=== PATIENT | male | born 1985 | race Caucasian/White ===

== ENCOUNTER 2023-10-11 11:08 | Emergency (ER) | payer OTHER, SELFPAY ==
[2023-10-11 11:19] VITALS: BP 114/73; PULSE 73; RESP 18; TEMP 37.4; O2SAT 99; BMI 32.8
--- NOTE | 2023-10-11 12:10 | CRLHL7_ITS ---
For Patients: As a result of the Century Cures Act, medical imaging exams and procedure reports are released immediately into your electronic medical record. You may view this report before your referring provider. If you have questions, please contact your health care provider. INDICATION: Cough and fever. Recent pneumonia. Rule out pulmonary embolism. TECHNIQUE: Volumetric helical scanning of the thorax was performed during infusion of 95 cc of Isovue 370 contrast material IV, timing optimized for pulmonary arterial opacification. Coronal and sagittal reconstructions were obtained. COMPARISON: Chest x-ray of 07/29/2023 FINDINGS: The images are of acceptable quality and demonstrate uniform vascular enhancement within the pulmonary arteries. No pulmonary arterial filling defect is identified. The heart size is normal. Right upper lobe and right middle lobe airspace infiltrates consistent with pneumonia are demonstrated. The lungs are otherwise essentially clear. Some bronchial wall thickening is noted in the regions of the pneumonia. No other airway abnormalities noted. No pleural effusion is demonstrated. There is no mediastinal or hilar adenopathy. Images of the upper abdomen are unremarkable. IMPRESSION: 1. Negative for pulmonary embolism. 2. Airspace pneumonia is in the right upper and middle lobes. Please note that all CT scans at this facility use dose modulation, iterative reconstruction, and/or weight-based dosing when appropriate to reduce radiation dose to as low as reasonably achievable. Dictated by Kai Nicholas MD @ 10/11/2023 1:25:39 PM (Electronically Signed)
--- NOTE | 2023-10-11 12:13 | ED_ITS ---
HPI - General Adult General Date Seen: 10/11/23 Chief complaint: Cough Stated complaint: agressive cough, fever Time Seen by Provider: 10/11/23 11:26 Source: patient, RN notes reviewed and old records reviewed Mode of arrival: ambulatory Limitations: no limitations History of Present Illness HPI narrative: Patient is a 38-year-old generally healthy male who reports cough for the past couple of days, fevers up to 102. He tells me had a pneumonia diagnosed a couple of months ago in urgent care, was treated with antibiotics and feels that he improved. His son has been sick for the past couple of weeks. He does mention night sweats as well. Weight has been stable. No underlying asthma, nonsmoker. Related Data Home Medications Medication Instructions Recorded Confirmed amoxicillin 875 mg-potassium 1 tab PO BID 07/29/23 07/29/23 clavulanate 125 mg tablet prednisone 20 mg tablet 20 mg PO BID 07/29/23 07/29/23 Previous Rx's Medication Instructions Recorded albuterol sulfate 2.5 mg/3 mL 2.5 mg (3 mL) inhalation Q4-6H PRN 07/11/23 (0.083 %) solution for nebulization bronchospasm #90 mL albuterol sulfate 90 mcg/actuation 2 puff inhalation Q4-6H PRN 07/11/23 aerosol inhaler (Ventolin HFA) shortness of breath or wheezing #8.5 grams Allergies Allergy/AdvReac Type Severity Reaction Status Date / Time No Known Drug Allergies Allergy Verified 07/29/23 12:06 Review of Systems Status of ROS: Reports: 6 or more systems reviewed and unremarkable except as noted in History and below [facility] Medical History Pneumonia ?J18.9 - Pneumonia, unspecified organism (ICD-10) Recurrent cough ?R05.8 - Other specified cough (ICD-10) Sore throat ?J02.9 - Acute pharyngitis, unspecified (ICD-10) Community acquired pneumonia ?J18.9 - Pneumonia, unspecified organism (ICD-10) Bronchitis ?J40 - Bronchitis, not specified as acute or chronic (ICD-10) Wheezing ?R06.2 - Wheezing (ICD-10) Strep pharyngitis ?J02.0 - Streptococcal pharyngitis (ICD-10) Social History Smoking Status: Never smoker Exam Narrative: Exam Narrative: Vital signs as noted above. In general, an alert, well-appearing patient. Head: Normocephalic, atraumatic. Eyes: Pupils are equal reactive. Extraocular movements are full. Conjunctivae are normal. ENT: Mucous membranes are moist. Throat is normal. Neck: Supple no stridor. Heart: Regular rate and rhythm. No murmur or rub. Lungs: He has a few scattered rhonchi primarily on the left, no wheezes, no increased work of breathing. Cough does sound somewhat bronchospastic. Abdomen: Soft and nontender. No organomegaly. Extremities: Well perfused. No edema. No calf tenderness. Pulses intact. Neurologic: Patient is alert and oriented to person and place. Speech is fluent. Face is symmetric. Moves all extremities equally. Affect: Normal. Skin: Warm and dry. Well perfused. Const: Vital Signs, click to edit/add: Vital Signs - 24 hr 10/11/23 11:19 Temperature 99.3 F Pulse Rate [Pulse Oximeter] 73 Respiratory Rate 18 Blood Pressure [Le ft Upper Arm] 114/73 Pulse Oximetry 99 Oxygen Delivery Me thod Room Air Documenting provider has reviewed patient's vital signs: yes Course Course ED Course: I reviewed his previous records including looking at his x-ray from a couple of months ago. He had a focal area of consolidation and right upper lobe somewhat rounded in appearance. Radiology recommended interval follow-up to ensure resolution. I think overall a CT scan is a better test today to make sure that that area looks normal and look for any new findings. COVID, flu and RSV ordered as well. Patient did not do a COVID test. COVID was negative as was flu and RSV. CT scan by my review showed what looked to be consolidation in the right middle and lower lobes. Read by radiology as follows:FINDINGS: The images are of acceptable quality and demonstrate uniform vascular enhancement within the pulmonary arteries. No pulmonary arterial filling defect is identified. The heart size is normal. Right upper lobe and right middle lobe airspace infiltrates consistent with pneumonia are demonstrated. The lungs are otherwise essentially clear. Some bronchial wall thickening is noted in the regions of the pneumonia. No other airway abnormalities noted. No pleural effusion is demonstrated. There is no mediastinal or hilar adenopathy. Images of the upper abdomen are unremarkable. IMPRESSION: 1. Negative for pulmonary embolism. 2. Airspace pneumonia is in the right upper and middle lobes. I reviewed this with the radiologist given that he appeared to have airspace c onsolidation on July 29 in the same area, radiologist did not feel that there was any evidence of an underlying mass or other structural abnormality. No significant adenopathy. Did not feel that he needed any additional workup. I did check labs and these are unremarkable with a normal white blood cell count, predominance of monocytes unremarkable metabolic panel and LFTs. CRP is elevated at 7. I have discussed all this with the patient. I did recommend that he have a repeat x-ray in 6 weeks with his regular clinic just to make sure that that really does clear up. Unclear whether this is a new pneumonia or persistence of infiltrate given no interval imaging. Doxycycline prescribed. For worsening respiratory symptoms, shaking chills vomiting etcetera return to the emergency department. Otherwise primary clinic follow-up if not improved over the next several days. Vital Signs Vital signs: Initial Vital Signs Temperature 99.3 F 10/11/23 11:19 Temperature Source Temporal Artery Scan 10/11/23 11:19 Pulse Rate 73 10/11/23 11:19 Pulse Rhythm Regular 10/11/23 11:19 Respiratory Rate 18 10/11/23 11:19 Blood Pressure 114/73 10/11/23 11:19 Blood Pressure Mean 86 10/11/23 11:19 Pulse Oximetry 99 10/11/23 11:19 Oxygen Delivery Method Room Air 10/11/23 11:19 Vital Signs Temperature 99.3 F 10/11/23 11:19 Pulse Rate 73 10/11/23 11:19 Respiratory Rate 18 10/11/23 11:19 Blood Pressure 114/73 10/11/23 11:19 Pulse Oximetry 99 10/11/23 11:19 Oxygen Delivery Method Room Air 10/11/23 11:19 Temperature 99.3 F 10/11/23 11:19 Pulse Rate 73 10/11/23 11:19 Respiratory Rate 18 10/11/23 11:19 Blood Pressure 114/73 10/11/23 11:19 Pulse Oximetry 99 10/11/23 11:19 Oxygen Delivery Method Room Air 10/11/23 11:19 Medical Decision Making Lab Data Labs: Lab Results 10/11/23 10/11/23 Range/Units 12:12 12:40 WBC 6.37 (4.50-11.00) K/uL RBC 5.07 (4.30-5.90) m/uL Hgb 15.1 (13.5-17.5) gm/dL Hct 45.3 (37.0-53.0) % MCV 89 (80-100) fL MCH 30 (26-34) pg MCHC 33 (32-36) gm/dL RDW Coeff of Saima 12.0 (11.5-15.5) % Plt Count 158 (140-440) K/uL Neut % (Auto) 61.7 (42.0-72.0) % Lymph % (Auto) 19.0 L (20-44) % Garrett % (Auto) 17.4 H (0.0-11.0) % Eos % (Auto) 1.4 (0.0-7.0) % Baso % (Auto) 0.3 (0.0-3.0) % Neut # (Auto) 3.93 (1.7-7.0) K/uL Lymph # (Auto) 1.20 (0.90-2.90) K/uL Garrett # (Auto) 1.10 H (0.00-0.90) K/UL Eos # (Auto) 0.09 (0.00-0.50) K/uL Baso # (Auto) 0.02 (0.00-0.30) K/uL Abs Immat Gran (auto) 0.01 (0.00-0.30) K/uL Imm/Tot Granulo (auto) 0.2 % Sodium 138 (135-149) mmol/L Potassium 4.1 (3.6-5.1) mmol/L Chloride 101 (96-114) mmol/L Carbon Dioxide 29 (20-32) mmol/L Anion Gap 8 (7-15) mEq/L BUN 10 (5-24) mg/dL Creatinine 0.7 (0.5-1.5) mg/dL Estimated Creat Clear 153.89 Estimated GFR 122 ml/min Glucose 100 (60-115) mg/dL Calcium 9.2 (8.4-10.6) mg/dL Total Bilirubin 1.4 (0.1-1.5) mg/dL Direct Bilirubin 0.0 (0.0-0.5) mg/dL AST 30 (12-35) U/L ALT 18 (4-50) U/L Alkaline Phosphatase 49 (40-150) U/L C-Reactive Protein 7.1 H (0.5-1.0) mg/dL Total Protein 8.3 (6.0-8.3) g/dL Albumin 4.6 (3.3-5.0) g/dL SARS-CoV-2 (PCR) Negative SARS-CoV-2 (Negative) Influenza Type A (PCR) Negative PCR FLU A (Negative) Influenza Type B (PCR) Negative PCR FLU B (Negative) RSV (PCR) Negative PCR RSV (Negative) Discharge Plan Discharge Clinical Impression: Pneumonia Patient Disposition: Home, Self-Care Condition: Stable Instructions: Community Acquired Pneumonia (DC) Additional Instructions: Antibiotic as prescribed. I would recommend that you follow-up with your primary clinic in about 6 weeks and have a repeat x-ray done to make sure that this area clears up. If you are worsening, have vomiting, chills, difficulty breathing etcetera return to the emergency department at any time. If symptoms are not improved over the next 3-4 days, see your primary clinic. Activity Level: No Restrictions Discharge Diet: Regular Prescriptions: No Action amoxicillin-pot clavulanate 875-125 mg tablet 1 tab PO BID prednisone 20 mg tablet 20 mg PO BID albuterol sulfate 2.5 mg /3 mL (0.083 %) solution for nebulization 2.5 mg inhalation Q4-6H PRN (Reason: bronchospasm) Qty: 90 0RF albuterol sulfate [Ventolin HFA] 90 mcg/actuation HFA aerosol inhaler 2 puff inhalation Q4-6H PRN (Reason: shortness of breath or wheezing) Qty: 8 .5 0RF Follow Up/Referrals: Hilton Fagan MD [Primary Care Provider] - Stand Alone Forms: [employer] Info Instructions
[2023-10-11 12:49] LABS: Basophils Absolute Auto 0.02 K/uL (0.00-0.30); Basophils Percent Auto 0.3 % (0.0-3.0); Eosinophils Absolute Auto 0.09 K/uL (0.00-0.50); Eosinophils Percent Auto 1.4 % (0.0-7.0); Hematocrit 45.3 % (37.0-53.0); Hemoglobin* 15.1 gm/dL (13.5-17.5); Immature Granulocytes Abs Auto 0.01 K/uL (0.00-0.30); Immature Granulocytes Pct Auto 0.2 %; Mean Corpuscular HGB Conc 33 gm/dL (32-36); Mean Corpuscular Hemoglobin 30 pg (26-34); Mean Corpuscular Volume 89 fL (80-100); Monocytes Percent Auto 17.4 % (0.0-11.0); Neutrophils Absolute Auto 3.93 K/uL (1.7-7.0); Neutrophils Percent Auto 61.7 % (42.0-72.0); Platelet Count* 158 K/uL (140-440); Red Blood Count 5.07 m/uL (4.30-5.90); White Blood Count* 6.37 K/uL (4.50-11.00)
[2023-10-11 12:56] LABS: Slide Review Reflex No
[2023-10-11 12:56] LABS: PCR FLU A Negative PCR FLU A (Negative); PCR FLU B Negative PCR FLU B (Negative); PCR RSV Negative PCR RSV (Negative)
[2023-10-11 12:57] LABS: SARS PCR* Negative SARS-CoV-2 (Negative)
[2023-10-11 13:01] LABS: Albumin* 4.6 g/dL (3.3-5.0); Chloride* 101 mmol/L (96-114)
[2023-10-11 13:02] LABS: Potassium* 4.1 mmol/L (3.6-5.1); Sodium* 138 mmol/L (135-149)
[2023-10-11 13:04] LABS: Creatinine* 0.7 mg/dL (0.5-1.5); Est. Creatinine Clearance* 153.89; Estimated Glomerular Filt Rate 122 ml/min
[2023-10-11 13:05] LABS: Alanine Aminotransferase* 18 U/L (4-50); Alkaline Phosphatase* 49 U/L (40-150); Anion Gap 8 mEq/L (7-15); Aspartate Amino Transferase* 30 U/L (12-35); Bilirubin Total* 1.4 mg/dL (0.1-1.5); Blood Urea Nitrogen* 10 mg/dL (5-24); Calcium* 9.2 mg/dL (8.4-10.6); Carbon Dioxide* 29 mmol/L (20-32); Glucose* 100 mg/dL (60-115); Total Protein* 8.3 g/dL (6.0-8.3)
[2023-10-11 13:08] LABS: C Reactive Protein* 7.1 mg/dL (0.5-1.0)
== END 2023-10-11 13:51 | disposition home or self-care (01) ==
PROVIDERS: Emergency Provider Emergency Medicine; PCP Family Medicine
DX: J18.9 Pneumonia, unspecified organism (principal)
CPT/HCPCS: 36415; 71275; 80048; 80076; 85025; 86140; 87631; 99284; 99285; Q9967

== ENCOUNTER 2025-08-02 09:03 | Outpatient (CLI) | payer OTHER, SELFPAY | END 2025-08-02 09:04 | disposition home or self-care (01) | LOC: NFLDREF 08-11 11:53 | PROVIDERS: PCP Family Medicine; Referring Provider Family Medicine; Visit Provider Family Medicine | DX: Z00.00 Encounter for general adult medical examination without abnormal findings (principal); Z13.220 Encounter for screening for lipoid disorders; Z86.19 Personal history of other infectious and parasitic diseases; G47.30 Sleep apnea, unspecified; Z13.1 Encounter for screening for diabetes mellitus; Z23 Encounter for immunization; R05.8 Other specified cough | CPT/HCPCS: 80053; 80061 ==